=== PATIENT | male | born 1980 | race Caucasian/White ===

== ENCOUNTER 2017-11-10 19:22 | Emergency (ER) | payer SELFPAY ==
[2017-11-10] MEDS ORDERED: Morphine 10 MG/ML VIAL ONE (19:34)
[2017-11-10] MEDS ORDERED: Fluorescein Opthalmic Strip ONE (19:42)
[2017-11-10] MEDS ORDERED: Cephalexin 500 MG CAP ONE (19:46)
== END 2017-11-10 19:48 | disposition home or self-care (01) ==
LOC: BURERS 19:22
DX: S00.252A Superficial foreign body of left eyelid and periocular area, initial encounter (principal); F17.210 Nicotine dependence, cigarettes, uncomplicated; W26.8XXA Contact with other sharp object(s), not elsewhere classified, initial encounter
CPT/HCPCS: 96372; J2001; J2270